=== PATIENT | male | born 1950 | race African-American/Black ===

== ENCOUNTER 2020-06-08 12:02 | Inpatient (IN) | payer MEDICARE, MEDICAID ==
[~2020-06-08] VITALS: Ht 170.2 cm; Wt 69.9 kg
[2020-06-08 12:36] LABS: CHLORIDE 104 mEq/L (98-107)
[2020-06-08 12:39] LABS: INR 1.2; PROTHROMBIN TIME 12.6 sec (9.6-11.0)
[2020-06-08 12:40] LABS: ETHANOL BLOOD < 10 mg/dL
[2020-06-08 12:45] LABS: BASOPHILS % 0.6 % (0.0-2.0); EOSINOPHILS % 0.5 % (0.0-5.0); HEMATOCRIT. 37.9 % (42.0-52.0); HEMOGLOBIN. 12.8 g/dL (14.0-18.0); LDL CHOLESTEROL 48 mg/dL (5-100); LYMPHOCYTES % 25.4 % (20.0-50.0); MEAN CORPUSCULAR HEMOGLOBIN 29.1 pg (28.0-32.0); MEAN CORPUSCULAR VOLUME 86.3 fL (80.0-94.0); MEAN PLATELET VOLUME 8.3 fl (7.4-10.4); MONOCYTES % 10.5 % (2.0-8.0); PLATELET 291 x1000/uL (130-400); RED CELL DISTRIBUTION WIDTH 14.1 % (11.6-14.6)
[2020-06-08] MEDS ORDERED: LEVETIRACETAM 1000MG PREMIX 100 ML IV ONE (12:45)
[2020-06-08] MEDS ORDERED: LORAZEPAM 2MG/ML CPJ IM STA (12:55)
[2020-06-08] MEDS ORDERED: IOHEXOL-350 100 ML BOTTLE ONE (12:58)
[2020-06-08] MEDS ORDERED: ACETAMINOPHEN 650MG SUPP PR PRN (14:45)
[2020-06-08] MEDS ORDERED: DIPHENHYDRAMINE 50MG/ML VIAL IV PRN (14:45)
[2020-06-08] MEDS ORDERED: ACETAMINOPHEN 325MG TABLET PO PRN (14:45)
[2020-06-08] MEDS ORDERED: IPRATROPIUM/ALBUTEROL 0.5-3(2.5)MG/3ML NEB NEB PRN (14:45)
[2020-06-08] MEDS ORDERED: GUAIFENESIN 200MG/10ML SUGAR FREE UDC PO PRN (14:45)
[2020-06-08] MEDS ORDERED: CLONIDINE 0.1MG TABLET PO PRN (14:45)
[2020-06-08] MEDS ORDERED: HYDROCODONE/ACETAMINOPHEN 5/325MG TABLET PO PRN (14:45)
[2020-06-08] MEDS ORDERED: LORAZEPAM 0.5MG TABLET PO PRN (14:45)
[2020-06-08] MEDS ORDERED: MAGNESIUM/ALUMINUM HYDROXIDE/SIMETHICONE 30ML UDC PO PRN (14:45)
[2020-06-08] MEDS ORDERED: DOCUSATE SODIUM 100MG CAPSULE PO PRN (14:45)
[2020-06-08] MEDS ORDERED: ACETAMINOPHEN 650MG/20.3ML UDC GT PRN (14:45)
[2020-06-08] MEDS ORDERED: ONDANSETRON HCL 4MG/2ML INJ IV PRN (14:45)
[2020-06-08] MEDS ORDERED: NA PHOS,M-B/NA PHOS,DI-BA ENEMA 118ML PR PRN (14:45)
[2020-06-08 16:52] LABS: BG BASE EXCESS 0.6 mmol/L (-2.0-2.0); BG CARBOXYHEMOGLOBIN 0.3 % (0.5-1.5); BG DEOXYHEMOGLOBIN 1.5 % (0.0-5.0); BG FRACTION INSPIRED OXYGEN 28; BG HCO3 ACT 23.7 mmol/L (22.0-26.0); BG METHEMOGLOBIN 0.3 % (0.0-1.5); BG OXYGEN SATURATION 98.5 % (92.0-98.5); BG OXYHEMOGLOBIN 97.9 % (94.0-97.0); BG PCO2 33.1 mmHg (35.0-45.0); BG PH 7.472 (7.350-7.450); BG PO2 138.4 mmHg (75.0-100.0); BG SAMPLE SITE RIGHT RADIAL; BG TOTAL HEMOGLOBIN 13.1 g/dL (12.0-18.0); BG VENT MODE NASAL CANNULA
[2020-06-08] MEDS ORDERED: ENOXAPARIN 40MG/0.4ML SYR SUBCUT SCH (17:00)
[2020-06-08] MEDS: FAMOTIDINE 20MG/2ML VIAL IV SCH (17:14)
[2020-06-08] MEDS: PIPERACILLIN/TAZ 3.375G PREMIX 100 ML IV SCH (17:14)
[2020-06-08] MEDS: ASPIRIN 81MG TABLET PO SCH (17:15)
[2020-06-08] MEDS: DEXT 5%/0.45% NACL 1000ML 1,000 ML IV SCH (17:15)
[2020-06-08 21:03] LABS: T4 FREE 1.19 ng/dL (0.76-1.46)
[2020-06-08 21:11] LABS: FOLIC ACID (FOLATE) SERUM 7.2 ng/mL (>5.38)
[2020-06-08] MEDS: LEVETIRACETAM 500MG PREMIX 100 ML IV SCH (22:10)
[2020-06-08 23:48] LABS: CREATINE KINASE 581 IU/L (39-308); CREATINE KINASE MB FRACTION 5.9 ng/mL (0.5-3.6)
[2020-06-09] MEDS: PIPERACILLIN/TAZ 3.375G PREMIX 50 ML IV SCH (03:30)
[2020-06-09] MEDS: PIPERACILLIN/TAZ 3.375G PREMIX 100 ML IV SCH ×2 (03:43→11:00)
[2020-06-09 06:44] LABS: HEMATOCRIT. 38.6 % (42.0-52.0); HEMOGLOBIN. 13.5 g/dL (14.0-18.0); MEAN CORPUSCULAR HEMOGLOBIN 29.5 pg (28.0-32.0); MEAN CORPUSCULAR VOLUME 84.2 fL (80.0-94.0); MEAN PLATELET VOLUME 8.1 fl (7.4-10.4); PLATELET 282 x1000/uL (130-400); RED BLOOD CELL COUNT 4.59 mill/uL (4.7-6.1); RED CELL DISTRIBUTION WIDTH 14.4 % (11.6-14.6)
[2020-06-09 06:48] LABS: CHLORIDE 102 mEq/L (98-107)
[2020-06-09 06:57] LABS: LDL CHOLESTEROL 50 mg/dL (5-100)
[2020-06-09 06:59] LABS: CREATINE KINASE 478 IU/L (39-308); CREATINE KINASE MB FRACTION 4.7 ng/mL (0.5-3.6); HDL CHOLESTEROL 47 mg/dL (40-59); T4 FREE 1.26 ng/dL (0.76-1.46)
[2020-06-09] MEDS: DEXT 5%/0.45% NACL 1000ML 1,000 ML IV SCH ×2 (07:00→16:10)
[2020-06-09] MEDS: FAMOTIDINE 20MG/2ML VIAL IV SCH (09:40)
[2020-06-09] MEDS: ASPIRIN 81MG TABLET PO SCH (09:40)
[2020-06-09] MEDS ORDERED: DIGOXIN 500MCG/2ML AMP IV NR (12:30)
[2020-06-09] MEDS ORDERED: DILTIAZEM HCL 5MG/ML 5ML VIAL IV PRN (13:45)
[2020-06-09 15:32] LABS: PLATELET ESTIMATE NORMAL
[2020-06-10] MEDS: PIPERACILLIN/TAZ 3.375G PREMIX 50 ML IV SCH (04:41)
[2020-06-10 05:12] LABS: BASOPHILS % 0.5 % (0.0-2.0); EOSINOPHILS % 1.2 % (0.0-5.0); HEMATOCRIT. 38.8 % (42.0-52.0); HEMOGLOBIN. 13.7 g/dL (14.0-18.0); LYMPHOCYTES % 59.3 % (20.0-50.0); MEAN CORPUSCULAR HEMOGLOBIN 29.9 pg (28.0-32.0); MEAN CORPUSCULAR VOLUME 84.5 fL (80.0-94.0); MEAN PLATELET VOLUME 8.7 fl (7.4-10.4); MONOCYTES % 9.3 % (2.0-8.0); NEUTROPHILS % 29.7 % (40.0-76.0); PLATELET 336 x1000/uL (130-400); RED BLOOD CELL COUNT 4.59 mill/uL (4.7-6.1); RED CELL DISTRIBUTION WIDTH 14.2 % (11.6-14.6)
[2020-06-10 05:20] LABS: CHLORIDE 104 mEq/L (98-107)
[2020-06-10 05:27] LABS: HDL CHOLESTEROL 40 mg/dL (40-59)
[2020-06-10 05:30] LABS: LDL CHOLESTEROL 56 mg/dL (5-100)
[2020-06-10 05:31] LABS: CREATINE KINASE 303 IU/L (39-308)
[2020-06-10 05:35] LABS: CREATINE KINASE MB FRACTION 4.1 ng/mL (0.5-3.6)
[2020-06-10] MEDS ORDERED: PIPERACILLIN/TAZ 3.375G PREMIX 100 ML IV SCH (09:00)
[2020-06-10 12:00] VITALS: BP 141/99
[2020-06-10] MEDS: DILTIAZEM HCL 60MG TABLET PO SCH ×2 (12:35→23:19)
[2020-06-10] MEDS: FAMOTIDINE 20MG/2ML VIAL IV SCH (12:35)
[2020-06-10] MEDS: ASPIRIN 81MG TABLET PO SCH (12:36)
[2020-06-10] MEDS: PIPERACILLIN/TAZOBACTAM 3.375 G in DEXT 5% WATER 100 ML IV SCH ×3 (12:36→23:18)
[2020-06-10 14:50] VITALS: BP 106/43
[2020-06-10 16:00] VITALS: BP 133/96
[2020-06-10] MEDS: ENOXAPARIN 60MG/0.6ML SYR SUBCUT SCH (19:24)
[2020-06-10] MEDS: DEXT 5%/0.45% NACL 1000ML 1,000 ML IV SCH (19:26)
[2020-06-10 20:00] VITALS: BP 125/78
[2020-06-10] MEDS ORDERED: MAGNESIUM 2 G PREMIX 50 ML IV NR (21:00)
[2020-06-10] MEDS: LEVETIRACETAM 500MG PREMIX 100 ML IV SCH (23:18)
[2020-06-10] MEDS: AMIODARONE HCL 200 MG TABLET PO SCH (23:20)
[2020-06-11] VITALS: BP 122/79
[2020-06-11] MEDS ORDERED: DONE10TA43 PO (01:54)
[2020-06-11] MEDS ORDERED: METO-539 PO (01:54)
[2020-06-11] MEDS ORDERED: GABA-529 PO (01:54)
[2020-06-11] MEDS ORDERED: APIX5TAB PO (01:54)
[2020-06-11] MEDS ORDERED: DIVA-75 PO (01:54)
[2020-06-11] MEDS ORDERED: BENZ0.5T43 PO (01:54)
[2020-06-11] MEDS ORDERED: TEMA15CA PO (01:54)
[2020-06-11] MEDS ORDERED: PANT40TA51 PO (01:54)
[2020-06-11 04:00] VITALS: BP 120/84
[2020-06-11] MEDS: PIPERACILLIN/TAZOBACTAM 3.375 G in DEXT 5% WATER 100 ML IV SCH ×3 (06:41→17:34)
[2020-06-11] MEDS: DILTIAZEM HCL 60MG TABLET PO SCH ×3 (06:41→17:34)
[2020-06-11] MEDS: ENOXAPARIN 60MG/0.6ML SYR SUBCUT SCH ×2 (06:47→17:34)
[2020-06-11 08:00] VITALS: BP 130/89
[2020-06-11] MEDS: FAMOTIDINE 20MG/2ML VIAL IV SCH (09:10)
[2020-06-11] MEDS: AMIODARONE HCL 200 MG TABLET PO SCH ×2 (09:10→20:38)
[2020-06-11] MEDS: ASPIRIN 81MG TABLET PO SCH (09:10)
[2020-06-11] MEDS: LEVETIRACETAM 500MG PREMIX 100 ML IV SCH ×3 (09:11→21:00)
[2020-06-11 10:05] LABS: HEMATOCRIT 31.3 % (42.0-52.0); HEMOGLOBIN 10.4 g/dL (14.0-18.0); MEAN CORPUSCULAR HEMOGLOBIN 29.7 pg (28.0-32.0); MEAN CORPUSCULAR VOLUME 89.5 fL (80.0-94.0); PLATELET 218 x1000/uL (130-400); RED BLOOD CELL COUNT 3.49 mill/uL (4.7-6.1); RED CELL DISTRIBUTION WIDTH 14.6 % (11.6-14.6)
[2020-06-11] MEDS ORDERED: SODIUM BICARBONATE 4% (2.4MEQ) 5ML VIAL IV ONE (12:43)
[2020-06-11] MEDS ORDERED: LIDOCAINE HCL 1% 20ML VIAL (Pyxis) INJ ONE (12:43)
[2020-06-11 20:00] VITALS: BP 134/88
[2020-06-11 21:00] LABS: CHLORIDE 101 mEq/L (98-107)
[2020-06-12] VITALS: BP 141/90
[2020-06-12] MEDS: DILTIAZEM HCL 60MG TABLET PO SCH ×4 (00:54→18:12)
[2020-06-12 04:00] VITALS: BP 127/85
[2020-06-12 08:00] VITALS: BP 112/69
[2020-06-12] MEDS: AMIODARONE HCL 200 MG TABLET PO SCH ×2 (08:47→22:28)
[2020-06-12] MEDS: APIXABAN 2.5 MG TABLET PO SCH ×2 (08:47→18:11)
[2020-06-12] MEDS: LEVETIRACETAM 500MG PREMIX 100 ML IV SCH ×4 (08:48→22:28)
[2020-06-12] MEDS: FAMOTIDINE 20MG/2ML VIAL IV SCH (08:48)
[2020-06-12 11:39] LABS: CHLORIDE 103 mEq/L (98-107)
[2020-06-12 12:00] VITALS: BP 143/87
[2020-06-12] MEDS: LEVOFLOXACIN 500MG PREMIX 100 ML IV SCH (12:50)
[2020-06-12 16:00] VITALS: BP 124/85
[2020-06-12 16:16] LABS: HEMATOCRIT 32.8 % (42.0-52.0); HEMOGLOBIN 11.5 g/dL (14.0-18.0); MEAN CORPUSCULAR HEMOGLOBIN 29.4 pg (28.0-32.0); MEAN CORPUSCULAR VOLUME 83.9 fL (80.0-94.0); PLATELET 244 x1000/uL (130-400); RED BLOOD CELL COUNT 3.91 mill/uL (4.7-6.1); RED CELL DISTRIBUTION WIDTH 14.1 % (11.6-14.6)
[2020-06-12 20:00] VITALS: BP 133/70
[2020-06-13] VITALS: BP 118/77
[2020-06-13] MEDS: DILTIAZEM HCL 60MG TABLET PO SCH ×4 (01:52→17:23)
[2020-06-13 04:00] VITALS: BP 136/80
[2020-06-13 08:00] VITALS: BP 127/78
[2020-06-13] MEDS: LEVETIRACETAM 500MG PREMIX 100 ML IV SCH ×2 (08:21→22:25)
[2020-06-13] MEDS: AMIODARONE HCL 200 MG TABLET PO SCH ×2 (08:21→22:25)
[2020-06-13] MEDS: FAMOTIDINE 20MG/2ML VIAL IV SCH (08:21)
[2020-06-13] MEDS: APIXABAN 2.5 MG TABLET PO SCH ×2 (08:25→17:23)
[2020-06-13] MEDS: LEVOFLOXACIN 500MG PREMIX 100 ML IV SCH (11:29)
[2020-06-13 12:00] VITALS: BP 142/85
[2020-06-13 16:00] VITALS: BP 109/72
[2020-06-13 20:00] VITALS: BP 111/78
[2020-06-13 21:58] LABS: BASOPHILS % 0.3 % (0.0-2.0); EOSINOPHILS % 0.7 % (0.0-5.0); HEMATOCRIT. 36.5 % (42.0-52.0); HEMOGLOBIN. 12.8 g/dL (14.0-18.0); MEAN CORPUSCULAR HEMOGLOBIN 29.6 pg (28.0-32.0); MEAN CORPUSCULAR VOLUME 84.7 fL (80.0-94.0); MEAN PLATELET VOLUME 8.3 fl (7.4-10.4); PLATELET 246 x1000/uL (130-400); RED BLOOD CELL COUNT 4.31 mill/uL (4.7-6.1); RED CELL DISTRIBUTION WIDTH 14.1 % (11.6-14.6)
[2020-06-13 22:15] LABS: CHLORIDE 102 mEq/L (98-107)
[2020-06-14] VITALS: BP 140/95
[2020-06-14] MEDS: DILTIAZEM HCL 60MG TABLET PO SCH ×3 (00:37→18:00)
[2020-06-14 04:00] VITALS: BP 119/84
[2020-06-14] MEDS ORDERED: ZINC SULFATE 220 MG ( 50 ) CAPSULE PO SCH (09:00)
[2020-06-14] MEDS ORDERED: ASCORBIC ACID 500 MG TABLET PO SCH (09:00)
[2020-06-14] MEDS: AMIODARONE HCL 200 MG TABLET PO SCH (09:59)
[2020-06-14] MEDS: FAMOTIDINE 20MG/2ML VIAL IV SCH (10:00)
[2020-06-14] MEDS: APIXABAN 2.5 MG TABLET PO SCH ×2 (10:00→18:21)
[2020-06-14] MEDS: LEVETIRACETAM 500MG PREMIX 100 ML IV SCH (10:01)
[2020-06-14 12:52] VITALS: BP 133/69
[2020-06-14] MEDS: LEVOFLOXACIN 500MG PREMIX 100 ML IV SCH (13:42)
[2020-06-14 16:58] VITALS: BP 95/68
[2020-06-14 18:56] VITALS: BP 105/68
[2020-06-15] MEDS ORDERED: AMIODARONE HCL 200 MG TABLET PO SCH (09:00)
== END 2020-06-14 19:40 | DRG 53 ==
LOC: ER 12:28 → MICUSO 13:54 → EDBEDREQ 14:03 → EDBEDREQTM 14:03 → SUPCPDRO 14:34 → 8WST 06-10 08:02 → 5WST 06-10 14:48 → 8WST 06-12 16:48
PROVIDERS: ADMIT Internal Medicine; ATTEND Internal Medicine
DX: G40.901 Epilepsy, unspecified, not intractable, with status epilepticus (principal); D64.9 Anemia, unspecified; I10 Essential (primary) hypertension; E11.9 Type 2 diabetes mellitus without complications; U07.1 COVID-19; J44.9 Chronic obstructive pulmonary disease, unspecified; F20.9 Schizophrenia, unspecified; M62.82 Rhabdomyolysis; R74.8 Abnormal levels of other serum enzymes; D68.59 Other primary thrombophilia; F03.90 Unspecified dementia, unspecified severity, without behavioral disturbance, psychotic disturbance, mood disturbance, and anxiety; I48.20 Chronic atrial fibrillation, unspecified; E78.00 Pure hypercholesterolemia, unspecified; Z86.73 Personal history of transient ischemic attack (TIA), and cerebral infarction without residual deficits; Z86.711 Personal history of pulmonary embolism; Z74.01 Bed confinement status; Z79.01 Long term (current) use of anticoagulants; Z79.899 Other long term (current) drug therapy; Z68.24 Body mass index [BMI] 24.0-24.9, adult; R50.9 Fever, unspecified; G93.41 Metabolic encephalopathy; E44.0 Moderate protein-calorie malnutrition
CPT/HCPCS: 36415; 36600; 70496; 71045; 78582; 80048; 80053; 80061; 80076; 80320; 82375; 82550; 82553; 82607; 82746; 82805; 82962; 83036; 83721; 83735; 84145; 84439; 84443; 84481; 84484; 85025; 85027; 85379; 87426; 92610; 93005; 93306; 93880; 93970; 93971; 97162; 97166; 99291; A9558; C1893; J1160; J1650; J1953; J1956; J2060; J2543; J3475; J3490; J7040; J7060; Q9967; U0003; G0480